=== PATIENT | male | born 1960 | race Caucasian/White ===

== ENCOUNTER 2017-10-31 09:01 | Emergency (ER) | payer SELFPAY ==
[2017-10-31 09:21] VITALS: BP 173/92; BMI 25.7
[2017-10-31] MEDS ORDERED: LASIX IVP ONE ×2 (09:52→10:17)
--- NOTE | 2017-10-31 09:52 | DR.GENAD ---
HPI - PCP Primary Care Physician: NONE AT THIS TIME - Complaint/Symptoms Chief Complaint:: PT C/O HAVING SWELLING TO HIS LEFT AND RIGHT FOOT AND THAT THE SWELLING THE LEFT FOOT STARTED 1 WEEK AGO AND THAT THE SWELLING TO THE RIGHT STARTED 4 DAYS AGO.. PT HAS INCREASED SOB WHILE WALKING..PT HAS 2 PLUS PITTING EDEMA TO FEET AND LOWER LEGS AND BRUISING NOTED ,, - Nurses notes reviewed Nurses Notes Review: Yes - Source History Provided: Patient, Family Member - Mode of Arrival Mode of Arrival: Ambulatory - Timing Onset of Chief Complaint: 10/24/17 Came on: Gradually - Duration Duration: Constant Duration: Days - Severity Severity: Moderate PMH - PMH Past Medical History: No Past Surgical History: Yes Past Surgical History Comment: COLOSTOMY AND REVERSAL IN 2003.. - Family History History of Family Medical Conditions: Yes - Social History Does patient currently use any type of tobacco product: Yes Have you used tobacco products in the last 12 months: Yes Type of Tobacco Use: Cigarettes How many years tobacco product used: 22 Does any household member use tobacco: No Alcohol Use: None Do you use any recreational Drugs:: No Lives With: Spouse Lives Where: Home - infectious screening In the last 2 months have you had wt loss of >10#?: NO Have you had fever, night sweats or hemotysis?: No Have you traveled outside the country in the last 6 months?: No Isolation: Standard PE - Vital Signs Vitals: Temperature 96.5 F Pulse Rate 108 Respiratory Rate 20 Blood Pressure 173/92 O2 Sat by Pulse Oximetry 94 ROR - Labs Reviewed Result Diagrams: 10/31/17 10:05 10/31/17 10:05 Laboratory: WBC 6.6 X10^3/uL (3.6-10.0) 10/31/17 10:05 RBC 4.48 X10^6/uL (4.7-6.0) L 10/31/17 10:05 Hgb 14.7 g/dL (13.5-18.0) 10/31/17 10:05 Hct 43.3 % (42.0-54.0) 10/31/17 10:05 MCV 96.7 fL (80.0-100.0) 10/31/17 10:05 MCH 32.9 pg (27.0-34.0) 10/31/17 10:05 MCHC 34.0 g/dL (33.0-35.0) 10/31/17 10:05 RDW 13.4 % (11.6-16.5) 10/31/17 10:05 Plt Count 137 X10^3/uL (150.0-450.0) L 10/31/17 10:05 MPV 9.0 fL (7.4-11.0) 10/31/17 10:05 Neut % 71.8 % (42.0-75.0) 10/31/17 10:05 Lymph % 14.7 % (21.0-51.0) L 10/31/17 10:05 Mora % 11.3 % (0.0-13.0) 10/31/17 10:05 Eos % 1.3 % (0.9-2.9) 10/31/17 10:05 Baso % 0.9 % (0.2-1.0) 10/31/17 10:05 Neut # 4.8 x10^3/uL (2.2-4.8) 10/31/17 10:05 Lymph # 1.0 X10^3/uL (1.3-2.9) L 10/31/17 10:05 Mora # 0.7 x10^3/uL (0.3-0.8) 10/31/17 10:05 Eos # 0.1 x10^3/uL (0.0-0.2) 10/31/17 10:05 Baso # 0.1 X10^3/uL (0.0-0.1) 10/31/17 10:05 Absolute Nucleated RBC 0.0 /100WBC 10/31/17 10:05 D-Dimer 1180 ng/mL (0-400) H* 10/31/17 10:05 Sodium 141 mmol/L (136-145) 10/31/17 10:05 Corrected Sodium 141 mmol/L (136-145) 10/31/17 10:05 Potassium 3.9 mmol/L (3.5-5.1) 10/31/17 10:05 Chloride 102 mmol/L (98-107) 10/31/17 10:05 Carbon Dioxide 34.2 mmol/L (21-32) H 10/31/17 10:05 BUN 17 mg/dL (7-18) 10/31/17 10:05 Creatinine 1.01 mg/dL (0.70-1.30) 10/31/17 10:05 Est GFR (MDRD) Af Amer > 60 (>60) 10/31/17 10:05 Est GFR (MDRD) Non-Af > 60 (>60) 10/31/17 10:05 Glucose 116 mg/dL (65-99) H 10/31/17 10:05 Calcium 9.1 mg/dL (8.5-10.1) 10/31/17 10:05 Corrected Calcium 9.7 mg/dL (8.5-10.1) 10/31/17 10:05 Total Bilirubin 1.00 mg/dL (0.2-1.0) 10/31/17 10:05 AST 21 Units/L (15-37) 10/31/17 10:05 ALT 17 Units/L (12-78) 10/31/17 10:05 Alkaline Phosphatase 95 Units/L (46-116) 10/31/17 10:05 Creatine Kinase 57 Units/L (39-308) 10/31/17 10:05 CK-MB (CK-2) 1.7 ng/mL (0-4.0) 10/31/17 10:05 CK/CKMB % Calc 3.0 % (<4) 10/31/17 10:05 Troponin I 0.03 ng/mL (0-1.5) 10/31/17 10:05 B-Natriuretic Peptide 769 pg/mL (0-79) H* 10/31/17 10:05 Total Protein 7.1 g/dL (6.4-8.2) 10/31/17 10:05 Albumin 3.3 g/dL (3.4-5.0) L 10/31/17 10:05 Globulin 3.8 g/dL (2.5-4.5) 10/31/17 10:05 Albumin/Globulin Ratio 0.9 Ratio (1.1-2.1) L 10/31/17 10:05 - Discharge Plan Disposition: 01 HOME, SELF-CARE Condition: Stable Prescriptions: Azithromycin [Zithromax] 1 dose PO DAILY #6 tab Furosemide [Lasix] 40 mg PO QAM #10 tab Levofloxacin [LEVAQUIN TAB 750 MG *] 750 mg PO Q24H #7 tab Potassium Chloride 10 meq PO DAILY #10 tab - Follow ups/Referrals Follow ups/Referrals: RICK,None [Primary Care Provider] - 3 days CONOR RECINOS [STAFF PHYSICIAN] - 11/04/17 - Instructions Instructions: Heart Failure, [id number], Community-Acquired Pneumonia, Adult , [id number] Additional Instructions: RETURN TO ED IF WORSE. USE MASK GIVEN YOU IF YOU START TO COUGH.
[2017-10-31 10:16] LABS: BASOPHILS # (AUTO) 0.1 X10^3/uL (0.0-0.1); BASOPHILS % (AUTO) 0.9 % (0.2-1.0); EOSINOPHILS # (AUTO) 0.1 x10^3/uL (0.0-0.2); EOSINOPHILS % (AUTO) 1.3 % (0.9-2.9); HEMATOCRIT 43.3 % (42.0-54.0); HEMOGLOBIN 14.7 g/dL (13.5-18.0); LYMPHOCYTES % (AUTO) 14.7 % (21.0-51.0); MEAN CORPUSCULAR HEMOGLOBIN 32.9 pg (27.0-34.0); MEAN CORPUSCULAR VOLUME 96.7 fL (80.0-100.0); MONOCYTES # (AUTO) 0.7 x10^3/uL (0.3-0.8); MONOCYTES % (AUTO) 11.3 % (0.0-13.0); NEUTROPHILS # (AUTO) 4.8 x10^3/uL (2.2-4.8); NEUTROPHILS % (AUTO) 71.8 % (42.0-75.0); PLATELET COUNT 137 X10^3/uL (150.0-450.0); RED BLOOD COUNT 4.48 X10^6/uL (4.7-6.0); RED CELL DISTRIBUTION WIDTH 13.4 % (11.6-16.5); WHITE BLOOD COUNT 6.6 X10^3/uL (3.6-10.0)
[2017-10-31 10:35] LABS: BLOOD UREA NITROGEN 17 mg/dL (7-18); CALCIUM 9.1 mg/dL (8.5-10.1); CARBON DIOXIDE 34.2 mmol/L (21-32); CHLORIDE 102 mmol/L (98-107); COR NA(FOR HYPERGLY) 141 mmol/L (136-145); CREATININE 1.01 mg/dL (0.70-1.30); SODIUM 141 mmol/L (136-145); TROPONIN I 0.03 ng/mL (0-1.5); eGFR BLACK RACES > 60 (>60); eGFR NON BLACK RACES > 60 (>60)
[2017-10-31 10:40] LABS: ALANINE AMINOTRANSFERASE 17 Units/L (12-78); ALBUMIN 3.3 g/dL (3.4-5.0); ALKALINE PHOSPHATASE 95 Units/L (46-116); ASPARTATE AMINO TRANSFERASE 21 Units/L (15-37); COR CA(FOR HYPOALB) 9.7 mg/dL (8.5-10.1); CREATINE KINASE 57 Units/L (39-308); CREATINE KINASE MB 1.7 ng/mL (0-4.0); TOTAL PROTEIN 7.1 g/dL (6.4-8.2)
[2017-10-31 11:07] LABS: B-TYPE NATRIURETIC PEPTIDE 769 pg/mL (0-79)
[2017-10-31] MEDS ORDERED: NS 100 ML IV 100 ML IV ONE (11:27)
--- NOTE | 2017-10-31 12:35 | CT ---
HISTORY: Swelling in the lower extremities increasing shortness of breath Study: CT chest with contrast Comparison: None Technique: Multiple axial images of the chest were obtained from the thoracic inlet to the upper abdo men after the administration of IV contrast. AP protocol utilizing coronal sagittal MIPS were obtaine d reviewed. Findings: The mediastinum does demonstrate some enlarged lymph nodes with a 15 mm short axis pretracheal lymph node and some 1 cm bilateral hilar lymph nodes. These are probably reactive in nature and there are s mall layering effusions bilaterally with scattered tree-in-bud nodular opacities throughout the lungs with a basilar for bile there is also a ground-glass nodular opacity in the left upper lobe which ap pears somewhat cavitary this measures 2.8 by 1.8 cm. These findings are probably infectious in nature although atypical infection given the left upper lobe cavitary lesion including TB should be exclude d. This should also be followed to ensure resolution is certainly a cavitary tumor could give a simil ar appearance. There is no pericardial effusion observed. The thoracic aorta is normal in its contou r without evidence for aneurysmal dilatation. The central pulmonary arterial system does not demonst rate central filling defects to suggest pulmonary emboli. The bony thorax is unremarkable in its appearance. There is a small amount of ascites in the upper a bdomen and there are bilateral adrenal nodules which are indeterminate on this exam but most statisti denny compatible adenomas in the absence of any known malignancy the largest on the left measures 3 c m.. IMPRESSION: 1. Scattered tree-in-bud nodular opacities in the left upper lobe cavitary lesion associated hilar m ediastinal adenopathy as above. These findings are probably infectious in nature and atypical infecti on including TB should be excluded. Follow-up of the left upper lobe cavitary lesion also recommended to ensure resolution. Please see above for other findings Reported By:
[2017-10-31] MEDS ORDERED: LEVAQUIN PREMIX IV 750 MG 750 MG/150 ML BAG IV ONE ×2 (13:17→13:46)
== END 2017-10-31 15:21 | disposition home or self-care (01) ==
LOC: ER 09:18
DX: I50.9 Heart failure, unspecified (principal); J18.9 Pneumonia, unspecified organism; R06.02 Shortness of breath
CPT/HCPCS: 36415; 71275; 80053; 82550; 82553; 83880; 84484; 85025; 85378; 93005; 93010; 96365; 96374; 96375; 99282; 99283; A4222; J1940; J1956